=== PATIENT | female | born 1990 | race Two or more races ===

== ENCOUNTER 2017-03-29 15:26 | Emergency (ER) | payer OTHER ==
[~2017-03-29] VITALS: Ht 152.4 cm; Wt 50.0 kg
[2017-03-29 15:28] VITALS: BP 142/70; PULSE 94; RESP 16; TEMP 99.1; O2SAT 99
--- NOTE | 2017-03-29 16:42 | PD ---
HPI Chief Complaint: Allergic/Adverse Reaction Time Seen by Provider: 16:36 Travel History International Travel<30 days: No Contact w/Intl Traveler<30days: No Traveled to known affect area: No History of Present Illness HPI 26 year old female presents to the ED for evaluation of hives that have been ongoing intermittently for the last 2 months.The patient is followed by Dr. Holland, motion designer, and states they have not determined what is the causing factor of her hives. She was given a dose of steroids today in his office and they have not improved, so she is seeking further treatment. She states following the injection, she felt flushed and a panicked sensation where "her breath was taken away" but this has resolved. Denies any current chest pain or shortness of breath. Denies sensation of oral swelling. Denies any new exposures , recent illness, fever, or chills. States the hives do itch and she alternates antihistamines to help with this. She has no other symptoms to report. PFSH Past Medical History Medical History: Denies Significant Hx ?: Not Social History Tobacco Use: No Allergies-Medications (Allergen,Severity, Reaction): Coded Allergies: [place] Dust (Verified Allergy, Unknown, 03/29/17) aspirin (Verified Allergy, Unknown, 03/29/17) pollen extracts (Verified Allergy, Unknown, 03/29/17) Reported Meds & Prescriptions Reported Meds & Active Scripts Active Vistaril (Hydroxyzine Pamoate) 25 Mg Cap 25 Mg PO QID PRN Zantac (Ranitidine HCl) 150 Mg Tab 150 Mg PO BID 5 Days Reported Cetirizine (Cetirizine HCl) 10 Mg Tab 10 Mg PO DAILY Claritin (Loratadine) 10 Mg Cap 10 Mg PO DAILY Diphenhydramine (Diphenhydramine HCl) 25 Mg Cap 25 Mg PO Q6H PRN Rifampin 300 Mg Cap 300 Mg PO DAILY Review of Systems Except as stated in HPI: all other systems reviewed are Neg Physical Exam Narrative GENERAL: Well nourished female patient in no acute distress SKIN: Warm and dry. Scattered, confluent blanchable urticaria like rash over the extremities and anterior trunk. No vesicle or pustule formation HEAD: Normocephalic. EYES: No scleral icterus. No injection or drainage. ENT: Pharynx without erythema or edema. Airway is patent. No uvular deviation. NECK: Supple, trachea midline. No JVD or lymphadenopathy. No stridor CARDIOVASCULAR: Regular rate and rhythm without murmurs, gallops, or rubs. RESPIRATORY: Breath sounds equal bilaterally. No accessory muscle use. GASTROINTESTINAL: Abdomen soft, non-tender, nondistended. MUSCULOSKELETAL: No cyanosis, or edema. BACK: Nontender without obvious deformity. No CVA tenderness. Data Data Last Documented VS Vital Signs Date Time Temp Pulse Resp B/P (MAP) Pulse Ox O2 Delivery O2 Flow Rate FiO2 03/29/17 17:31 96 18 121/61 (81) 97 03/29/17 16:57 98.8 Room Air Orders Orders Hydroxyzine Hcl (Atarax) (03/29/17 16:45) Famotidine (Pepcid) (03/29/17 16:45) [facility] Medical Decision Making Medical Screen Exam Complete: Yes Emergency Medical Condition: Yes Medical Record Reviewed: Yes Differential Diagnosis urticaria versus viral exanthem versus allergic reaction versus stress reaction versus contact dermatitis versus anaphylaxis Narrative Course 26 year old female presents to the ED for evaluation of urticarial like rash intermittently occurring over the last 2 months. Pt appears well. She is without distress. She does have an urticarial like rash over her extremities and anterior trunk with no other symptoms. Pt was given steroids today in her motion designer office. I will offer atarax and pepcid. She is encouraged to continue follow up with motion designer and consider head sugar reprocess operator evaluation. Stress and anxiety could also be attributing to her symptoms. She verbalizes understanding. She agrees with this plan of care and to return with any acute worsening of symptoms Diagnosis Primary Impression: Urticaria Referrals: Primary Care Physician Patient Instructions: General Instructions, Urticaria (ED) Additional Instructions: Avoid scratching rash Follow-up with the primary care provider Return immediately with any acute worsening of symptoms Med/Other Pt SpecificInfo: Prescription(s) given Scripts Hydroxyzine Pamoate (Vistaril) 25 Mg Cap 25 MG PO QID Y for ALLERGIC REACTION, #20 CAP 0 Refills Prov: Bronwyn Barrientos 03/29/17 Ranitidine (Zantac) 150 Mg Tab 150 MG PO BID for Allergic Reaction for 5 Days, #10 TAB 0 Refills Prov: Bronwyn Barrientos 03/29/17 Disposition: 01 DISCHARGE HOME Condition: Stable Bronwyn Barrientos Mar 29, 2017 16:42
[2017-03-29] MEDS ORDERED: FAMOTIDINE 20 MG TAB PO ONE (16:45)
[2017-03-29] MEDS ORDERED: hydrOXYzine HCL 25 MG TAB PO ONE (16:45)
[2017-03-29] MEDS ORDERED: DIPH25CA PO (16:51)
[2017-03-29] MEDS ORDERED: CLAR10CA3 PO (16:51)
[2017-03-29] MEDS ORDERED: RIFA300C2 PO (16:51)
[2017-03-29] MEDS ORDERED: CETI10 PO (16:51)
[2017-03-29 16:57] VITALS: BP 121/61; PULSE 96; RESP 18; TEMP 98.8; O2SAT 98
[2017-03-29] MEDS ORDERED: ZANT150T2 PO (17:17)
[2017-03-29] MEDS ORDERED: VIST25CA PO (17:17)
[2017-03-29 17:31] VITALS: BP 121/61
== END 2017-03-29 17:32 | disposition home or self-care (01) ==
LOC: NEPD 15:26
DX: L50.9 Urticaria, unspecified (principal)
CPT/HCPCS: 99284